=== PATIENT | male | born 1930 | race Caucasian/White ===

== ENCOUNTER → 2017-01-07 | Outpatient (CLI) | payer OTHER ==
[~2017-01-07] MED LIST: REGADENOSON 0.4 MG/5 ML SYRINGE ONE
== END | disposition home or self-care (01) ==
LOC: CFH 08:47
PROVIDERS: ATTEND Internal Medicine Cardiovascular Disease
DX: I25.10 Atherosclerotic heart disease of native coronary artery without angina pectoris (principal)
CPT/HCPCS: 78452; 93017; A9502; J2785

== ENCOUNTER → 2017-01-14 | Outpatient (CLI) | payer OTHER | END | disposition home or self-care (01) | LOC: CFH 09:48 | PROVIDERS: ATTEND Internal Medicine Cardiovascular Disease | DX: I35.1 Nonrheumatic aortic (valve) insufficiency (principal); E78.5 Hyperlipidemia, unspecified | CPT/HCPCS: 93306 ==

== ENCOUNTER 2017-03-13 11:13 | Day surgery (SDC) | payer OTHER ==
[~2017-03-13] VITALS: Ht 174 cm; Wt 82.2 kg
[~2017-03-13 11:13] MED LIST changes: +ASCO100019 PO; +ASPI-496 PO; +ATOR10TA9 PO; +CARB1TAB2 PO; +CHOL200024 PO; +LEVO200T42 PO; +MAGN250T8 PO; +MULT1CAP19 PO; -REGADENOSON 0.4 MG/5 ML SYRINGE ONE; +TRIA15CR2 TD; +VITA1CAP PO
[2017-03-13 11:50] VITALS: BP 165/90
[2017-03-13] MEDS ORDERED: FENTANYL PF 250 MCG/5ML ONE (12:36)
[2017-03-13] MEDS ORDERED: EPINEPHRINE TOPICAL SOLN 1 MG/ML, 30ML ONE (13:01)
[2017-03-13] MEDS ORDERED: REMIFENTANIL 1 MG ONE (13:12)
[2017-03-13] MEDS ORDERED: ACETAMINOPHEN 325 MG TABLET PO PRN (13:30)
[2017-03-13] MEDS ORDERED: OXYcodone 5 MG/5 ML ORAL.SOL UDC PO PRN (13:30)
[2017-03-13] MEDS ORDERED: HYDROmorphone 1 MG/ML, 1ML IV PRN (13:30)
[2017-03-13] MEDS ORDERED: ONDANSETRON 2MG/ML, 2ML IVPush PRN (13:30)
[2017-03-13] MEDS ORDERED: FENTANYL PF 100 MCG/2ML IV PRN (13:30)
[2017-03-13] MEDS ORDERED: HYDROcodone/APAP 7.5-325MG/15ML UDC PO PRN (13:30)
[2017-03-13] MEDS ORDERED: ONDANSETRON 2MG/ML, 2ML ONE (13:49)
[2017-03-13] MEDS ORDERED: DEXAMETHASONE 4 MG/ML, 5ML ONE (13:49)
[2017-03-13] MEDS ORDERED: PROPOFOL 10 MG/ML, 20ML ONE (13:49)
[2017-03-13] MEDS ORDERED: hydrALAzine 20 MG/ML, 1ML ONE ×2 (14:56→15:27)
[2017-03-13] MEDS ORDERED: hydrALAzine 20 MG/ML, 1ML IV ONE ×2 (15:00→15:30)
== END 2017-03-13 16:55 ==
LOC: OUT 11:13
PROVIDERS: ATTEND Otolaryngology
DX: G20 Parkinson's disease (principal); J38.3 Other diseases of vocal cords
CPT/HCPCS: 31571; 93005; C1878; J0360; J1100; J2405; J2704; J3010

== ENCOUNTER 2019-07-16 14:24 | Observation (INO) | payer MEDICARE ==
[~2019-07-16] VITALS: Ht 179.1 cm; Wt 81.6 kg
[~2019-07-16 14:24] MED LIST changes: +IBUP-1623 PO; +METO-93 PO; +METR60GE TP
--- NOTE | 2019-07-16 14:38 | NUR ---
PT CAME IN CO OF [facility] FOR 2 DAYS. "ITS BEEN LOOSE AND BRIGHT RED. THERE HAS ALSO BEEN BLACK STOOLS". KIARRA HX OF HEMROIDS. DENIES DIZZINESS OR NAUSEA. MD IS BEDSIDE FOR ASSESSMENT
[2019-07-16 15:11] LABS: BASOPHILS # (AUTO) 0.04 x10^3/uL (0-0.1); BASOPHILS % (AUTO) 1 % (0-1); EOSINOPHILS # (AUTO) 0.07 x10^3/uL (0-0.4); EOSINOPHILS % (AUTO) 1 % (1-7); LYMPHOCYTES # (AUTO) 1.96 x10^3/uL (1-3.4); LYMPHOCYTES % (AUTO) 37 % (22-44); MD NO; MEAN CORPUSCULAR HEMOGLOBIN 31.7 pg (27.5-34.5); MEAN CORPUSCULAR HGB CONC 31.2 g/dL (33.2-36.2); MEAN CORPUSCULAR VOLUME 101.7 fL (81-97); MEAN PLATELET VOLUME 6.6 fL (7.4-10.4); MONOCYTES # (AUTO) 0.44 x10^3/uL (0.2-0.8); MONOCYTES % (AUTO) 8 % (2-9); NEUTROPHILS # (AUTO) 2.81 x10^3/uL (1.8-6.8); NEUTROPHILS % (AUTO) 53 % (42-75); PLATELET COUNT 179 x10^3/uL (130-400); RED CELL DISTRIBUTION WIDTH 15.2 % (9.4-14.8)
[2019-07-16 15:20] LABS: INTERNATIONAL NORMALIZED RATIO 0.98 (0.93-1.1); PROTHROMBIN TIME 10.4 Seconds (9.6-11.5)
[2019-07-16 15:21] LABS: ALANINE AMINOTRANSFERASE 8 U/L (12-78); ALBUMIN 3.7 g/dL (3.4-5.0); ANION GAP 6 mmol/L (5-15); CALCIUM 8.7 mg/dL (8.5-10.1); CHLORIDE 108 mmol/L (98-107); CREATININE 1.31 mg/dL (0.7-1.3)
[2019-07-16 15:23] LABS: ALKALINE PHOSPHATASE 50 U/L (45-117); BILIRUBIN,TOTAL 0.4 mg/dL (0.2-1.0)
--- NOTE | 2019-07-16 15:50 | NUR ---
PT IN CT AT THIS TIME
[2019-07-16] MEDS ORDERED: OMNIPAQUE 350 MG/ML, 100ML BOTTLE ONE (16:08)
--- NOTE | 2019-07-16 16:28 | NUR ---
PT RESTING IN [facility]. VSS. NAD. DAUGHTER IS BEDSIDE.
[2019-07-16] MEDS ORDERED: GOLYTELY 4,000ML ORAL.SOL PO ONE ×2 (17:00→20:00)
[2019-07-16] MEDS: SODIUM CHLORIDE 0.9% 1,000 ML IV SCH (17:45)
--- NOTE | 2019-07-16 17:58 | NUR ---
FARTUN RN: PT PROVDIED WITH GOLYTELY. PT STEADY UPON AMBULATION. PT AWARE HE IS TO BE NPO AT MIDNIGHT.
[2019-07-16] MEDS ORDERED: ONDANSETRON ODT 4 MG PO PRN (18:00)
[2019-07-16] MEDS ORDERED: TRIAMCINOLONE CRM 0.025%, 15GM TP PRN (18:00)
[2019-07-16] MEDS ORDERED: ONDANSETRON 2MG/ML, 2ML IVPush PRN (18:00)
[2019-07-16] MEDS ORDERED: CEFTRIAXONE PMX 2GM/50ML 50 ML IV SCH (18:00)
[2019-07-16] MEDS ORDERED: ACETAMINOPHEN 325 MG TABLET PO PRN (18:00)
[2019-07-16] MEDS ORDERED: CEFTRIAXONE PMX 2GM/50ML 50 ML ONE (18:37)
--- NOTE | 2019-07-16 19:09 | NUR ---
FARTUN RN: REPORT TO ELI BENITES.
[2019-07-16 20:02] VITALS: BP 169/67
[2019-07-16 20:24] VITALS: BP 169/67
[2019-07-16] MEDS ORDERED: METRONIDAZOLE GEL 1%, 60GM TP SCH (21:00)
[2019-07-16] MEDS: METRONIDAZOLE PMX 500MG/100ML 100 ML IV SCH (21:11)
[2019-07-16] MEDS: LACTOBACILLUS CHEW TABLET PO SCH (21:12)
[2019-07-16] MEDS: METOPROLOL SUCCINATE 50 MG TAB.ER.24H PO SCH (21:12)
[2019-07-16] MEDS: CARBIDOPA/LEVODOPA 25 MG/100 MG TABLET PO SCH (21:12)
[2019-07-16] MEDS: ATORVASTATIN 20 MG TABLET PO SCH (21:12)
[2019-07-17 00:20] VITALS: BP 162/87
[2019-07-17 02:10] LABS: ANION GAP 6 mmol/L (5-15); CALCIUM 8.3 mg/dL (8.5-10.1); CHLORIDE 111 mmol/L (98-107); CREATININE 1.17 mg/dL (0.7-1.3)
[2019-07-17 02:15] LABS: BASOPHILS # (AUTO) 0.03 x10^3/uL (0-0.1); BASOPHILS % (AUTO) 1 % (0-1); EOSINOPHILS # (AUTO) 0.09 x10^3/uL (0-0.4); EOSINOPHILS % (AUTO) 2 % (1-7); LYMPHOCYTES # (AUTO) 1.88 x10^3/uL (1-3.4); LYMPHOCYTES % (AUTO) 37 % (22-44); MD NO; MEAN CORPUSCULAR HEMOGLOBIN 32.6 pg (27.5-34.5); MEAN CORPUSCULAR HGB CONC 33.5 g/dL (33.2-36.2); MEAN CORPUSCULAR VOLUME 97.5 fL (81-97); MEAN PLATELET VOLUME 6.2 fL (7.4-10.4); MONOCYTES # (AUTO) 0.39 x10^3/uL (0.2-0.8); MONOCYTES % (AUTO) 8 % (2-9); NEUTROPHILS # (AUTO) 2.73 x10^3/uL (1.8-6.8); NEUTROPHILS % (AUTO) 53 % (42-75); PLATELET COUNT 157 x10^3/uL (130-400); RED BLOOD COUNT 3.52 x10^6/uL (4.38-5.82); RED CELL DISTRIBUTION WIDTH 13.6 % (9.4-14.8)
[2019-07-17] MEDS: METRONIDAZOLE PMX 500MG/100ML 100 ML IV SCH (05:13)
[2019-07-17] MEDS: LEVOTHYROXINE 200 MCG TABLET PO SCH (05:13)
[2019-07-17] MEDS: CARBIDOPA/LEVODOPA 25 MG/100 MG TABLET PO SCH ×4 (05:13→20:56)
[2019-07-17 07:12] VITALS: BP 144/71
[2019-07-17] MEDS ORDERED: hydrALAzine 20 MG/ML, 1ML IV PRN (08:00)
[2019-07-17] MEDS ORDERED: PANTOPRAZOLE 40 MG IV IVPush SCH ×2 (09:00→21:00)
[2019-07-17] MEDS ORDERED: CHLORHEXIDINE 15 ML UDC MM ONE (10:15)
[2019-07-17] MEDS: SODIUM CHLORIDE 0.9% 1,000 ML IV SCH (10:25)
[2019-07-17] MEDS ORDERED: SUCCINYLCHOLINE 20 MG/ML, 10ML ONE (10:49)
[2019-07-17] MEDS ORDERED: ROCURONIUM 10 MG/ML,10ML ONE (10:49)
[2019-07-17] MEDS ORDERED: FENTANYL PF 100 MCG/2ML ONE (10:51)
[2019-07-17] MEDS ORDERED: ACETAMINOPHEN 325 MG TABLET PO PRN (11:00)
[2019-07-17] MEDS ORDERED: FENTANYL PF 100 MCG/2ML IV PRN (11:00)
[2019-07-17] MEDS ORDERED: ONDANSETRON 2MG/ML, 2ML IV PRN (11:00)
[2019-07-17] MEDS ORDERED: LABETALOL 5MG/ML, 20ML IV PRN (11:00)
[2019-07-17] MEDS ORDERED: DEXAMETHASONE 4 MG/ML, 1ML ONE (11:25)
[2019-07-17] MEDS ORDERED: PROPOFOL 10 MG/ML, 20ML ONE (11:25)
[2019-07-17] MEDS ORDERED: ONDANSETRON 2MG/ML, 2ML ONE (11:25)
[2019-07-17 12:20] VITALS: BP 161/75
[2019-07-17] MEDS: ASCORBIC ACID 500 MG TABLET PO SCH (12:56)
[2019-07-17] MEDS: CYANOCOBALAMIN 1,000 MCG TABLET PO SCH (12:56)
[2019-07-17] MEDS: MAGNESIUM OXIDE 400 MG TABLET PO SCH (12:57)
[2019-07-17] MEDS: MULTIVITAMIN 1 TABLET PO SCH (12:57)
[2019-07-17] MEDS: LACTOBACILLUS CHEW TABLET PO SCH ×3 (12:58→20:53)
[2019-07-17] MEDS: CHOLECALCIFEROL 1,000 UNIT TABLET PO SCH (12:58)
[2019-07-17] MEDS ORDERED: ROPI0.254 PO (19:04)
[2019-07-17 19:34] VITALS: BP 114/69
[2019-07-17] MEDS: ROPINIROLE 0.25MG TABLET PO SCH (20:54)
[2019-07-17] MEDS: METOPROLOL SUCCINATE 50 MG TAB.ER.24H PO SCH (20:54)
[2019-07-17] MEDS: ATORVASTATIN 20 MG TABLET PO SCH (20:54)
[2019-07-18 00:20] VITALS: BP 144/71
[2019-07-18] MEDS: SODIUM CHLORIDE 0.9% 1,000 ML IV SCH (03:05)
[2019-07-18] MEDS: LEVOTHYROXINE 200 MCG TABLET PO SCH (05:59)
[2019-07-18] MEDS: CARBIDOPA/LEVODOPA 25 MG/100 MG TABLET PO SCH (05:59)
[2019-07-18 07:11] VITALS: BP 121/61
[2019-07-18 07:45] LABS: BASOPHILS # (AUTO) 0.01 x10^3/uL (0-0.1); BASOPHILS % (AUTO) 0 % (0-1); EOSINOPHILS % (AUTO) 0 % (1-7); LYMPHOCYTES # (AUTO) 0.94 x10^3/uL (1-3.4); LYMPHOCYTES % (AUTO) 18 % (22-44); MD NO; MEAN CORPUSCULAR HEMOGLOBIN 32.1 pg (27.5-34.5); MEAN CORPUSCULAR VOLUME 97.2 fL (81-97); MEAN PLATELET VOLUME 6.3 fL (7.4-10.4); MONOCYTES # (AUTO) 0.27 x10^3/uL (0.2-0.8); MONOCYTES % (AUTO) 5 % (2-9); NEUTROPHILS # (AUTO) 3.92 x10^3/uL (1.8-6.8); NEUTROPHILS % (AUTO) 76 % (42-75); PLATELET COUNT 152 x10^3/uL (130-400); RED BLOOD COUNT 3.42 x10^6/uL (4.38-5.82); RED CELL DISTRIBUTION WIDTH 13.6 % (9.4-14.8)
[2019-07-18] MEDS: LACTOBACILLUS CHEW TABLET PO SCH (08:46)
[2019-07-18] MEDS: MULTIVITAMIN 1 TABLET PO SCH (08:46)
[2019-07-18] MEDS: MAGNESIUM OXIDE 400 MG TABLET PO SCH (08:46)
[2019-07-18] MEDS: ROPINIROLE 0.25MG TABLET PO SCH (08:46)
[2019-07-18] MEDS: CHOLECALCIFEROL 1,000 UNIT TABLET PO SCH (08:46)
[2019-07-18] MEDS: ASCORBIC ACID 500 MG TABLET PO SCH (08:46)
[2019-07-18] MEDS: CYANOCOBALAMIN 1,000 MCG TABLET PO SCH (08:46)
[2019-07-19] MEDS ORDERED: CARBIDOPA/LEVODOPA 25 MG/100 MG TABLET PO SCH (21:00)
== END 2019-07-18 09:48 | disposition home or self-care (01) ==
LOC: ED 15:27 → INTOOBSV 17:22 → EDIP 17:22 → 4WST 20:00
PROVIDERS: ADMIT Internal Medicine; ATTEND Hospitalist
DX: K63.5 Polyp of colon (principal); K57.31 Diverticulosis of large intestine without perforation or abscess with bleeding; K62.1 Rectal polyp; N17.9 Acute kidney failure, unspecified; E03.9 Hypothyroidism, unspecified; E78.5 Hyperlipidemia, unspecified; G20 Parkinson's disease; I10 Essential (primary) hypertension; K64.8 Other hemorrhoids; K80.20 Calculus of gallbladder without cholecystitis without obstruction; N20.0 Calculus of kidney; Z88.0 Allergy status to penicillin; Z87.19 Personal history of other diseases of the digestive system; Z79.82 Long term (current) use of aspirin; Z79.899 Other long term (current) drug therapy
CPT/HCPCS: 36415; 45382; 45385; 74174; 80048; 80053; 85018; 85025; 85610; 85730; 86850; 86900; 88305; 93005; 96361; 96365; 96366; 96367; 96375; 96376; 99285; C9113; G0378; J0330; J0696; J1100; J2405; J2704; J3010; J7030; Q9967; 96374